=== PATIENT | female | born 1960 | race Caucasian/White ===

== ENCOUNTER 2019-08-03 08:51 | Outpatient (REF) | payer OTHER, SELFPAY ==
[2019-08-03 11:46] LABS: ALT 23 U/L (14-59); AST 18 U/L (15-37); Alkaline Phosphatase 90 U/L (46-116); Anion Gap 7.9 mmol/L (3-11); BUN 11 mg/dL (7-18); Bilirubin, Total 0.3 mg/dL (0.2-1.0); CO2 29.1 mmol/L (21.0-32.0); CREATININE 0.98 mg/dL (0.55-1.02); Calcium 9.2 mg/dL (8.5-10.1); Calculated LDL 84 mg/dL; Chloride 108 mmol/L (98-107); Cholesterol 137 mg/dL (50-200); Estimated GFR 58.09 (mL/min/1.73m2); Glucose 100 mg/dL (70-100); HDL Cholesterol 44 mg/dL (40-60); Potassium 4.6 mmol/L (3.5-5.1); Sodium 145 mmol/L (136-145); Triglyceride 46 mg/dL (30-150)
== END 2019-08-03 09:11 ==
LOC: NCHCN 08:51
PROVIDERS: PCP Nurse Practitioner Family; Visit Provider Family Medicine
DX: Z00.00 Encounter for general adult medical examination without abnormal findings (principal); E03.9 Hypothyroidism, unspecified; R73.03 Prediabetes
CPT/HCPCS: 80053; 80061

== ENCOUNTER 2019-08-10 11:19 | Outpatient (REF) | payer OTHER, SELFPAY ==
--- NOTE | 2019-08-10 10:30 | PAPFT_PTH ---
PATIENT: Ayde Trent LOC: [facility] U#:[id number] AGE/SX: 59/F ROOM: RE08/10/[address]: Lyn Canales : 1960 BED: DIS: 08/10/2019 SPEC #: [id number] RECD: 08/11/19 12:50 STATUS: BAUDILIO REQ #: [id number] ADRI: 08/10/19 10:[address]: Lyn Canales DEPT: [facility] Cytology RECD BY: Kenya Maradiaga ENTERED: 08/11/19 12:50 SP TYPE: PAPFT OTHR DR: Magdalena Ochoa Tissues: 1 - CX/ENDOCX FOR PAP SMEARS Procedures: PAP THIN PREP/[facility] Screening Comments: [id number] (UNSATISFACTORY FOR EVALUATION)
== END 2019-08-10 11:39 ==
LOC: NCHCN 11:19
PROVIDERS: PCP Nurse Practitioner Family; Visit Provider Family Medicine
DX: Z00.00 Encounter for general adult medical examination without abnormal findings (principal); Z12.4 Encounter for screening for malignant neoplasm of cervix; Z11.51 Encounter for screening for human papillomavirus (HPV); Z01.419 Encounter for gynecological examination (general) (routine) without abnormal findings
CPT/HCPCS: 88142; 87624

== ENCOUNTER 2020-03-27 08:47 | Outpatient (CLI) | payer OTHER, SELFPAY ==
--- NOTE | 2020-03-27 | DI.MAMMO_ITS ---
EXAM: MAMMO SCREENING CLINICAL HISTORY: SCREENING, Z12.31, PREVENTIVE CARE, Z00.00 TECHNIQUE: Mammograms were interpreted according to the usual protocol including computer analysis w [email or web address] CAD system, tomosynthesis and C-view imaging. COMPARISON: 2009 through 2015 FINDINGS: The breasts are composed of heterogeneously dense fibroglandular densities, Breast Density category C . No suspicious masses or suspicious microcalcifications are seen. No skin thickening or abnormal axillary lymph nodes are seen. There has been no significant change from prior exams. IMPRESSION: BI-RADS Category 1: Negative mammogram. Yearly screening mammography is recommended. Breast density category C, heterogeneously dense tissue which decreases the sensitivity of the mammog edie. The mammogram demonstrates the patient's breast tissue is dense. Dense breast tissue is very common a nd is not abnormal but dense breast tissue can make it harder to find cancer on a mammogram. Also, de nse breast tissue may increase breast cancer risk. This information about the result of the mammogram report was provided to the patient to raise their awareness. Use this report when you speak with the patient about their risks for breast cancer, which includes their family history. At that time, you may recommend additional screening tests (Ultrasound or MRI) as they might be useful based on their r isk. A negative radiographic report should not delay biopsy if a dominant or clinically suspicious mass is present. Up to ten percent of cancers are not identified on mammography. A negative report may reinforce clinical impression. Adenosis and dense breasts may obscure an underlying neoplasm. False positive reports average 6 to 10%.
--- NOTE | 2020-03-27 | DI.DEXA_ITS ---
EXAM: XR DEXA BONE DENSITY W/WO WILDER CLINICAL HISTORY: SCREENING FOR OSTEOPOROSIS IN POSTMENOPAUSAL WOMAN,Z78.0,PREVENTIVE CARE, TECHNIQUE: HoloViropro C densitometer was utilized. COMPARISON: DEXA BONE DENSITY WITH WILDER from 05/12/2016 FINDINGS: The lateral view of the thoracic and lumbar spine shows no evidence of compression fractures. Bone mineral density measurements of the lumbar spine correspond to a total T-score of -3.1, in the o steoporotic range. This is a 3.0 percent decrease when compared with 2016 which is not statistically significant. The bone mineral density measurements of the left hip correspond to a total T-score of -0.8 and a fem oral neck T-score of -1.4, in the osteopenic range. The total bone mineral density is unchanged when compared with 2016. Forearm was not analyzed due to history of fracture. IMPRESSION: Stable osteoporosis of the lumbar spine. Stable osteopenia of the left hip.
== END 2020-03-27 09:07 ==
PROVIDERS: PCP Nurse Practitioner Family; Visit Provider Family Medicine
DX: M81.0 Age-related osteoporosis without current pathological fracture (principal); M85.88 Other specified disorders of bone density and structure, other site; Z78.0 Asymptomatic menopausal state; Z00.00 Encounter for general adult medical examination without abnormal findings; Z12.31 Encounter for screening mammogram for malignant neoplasm of breast
CPT/HCPCS: 77063; 77067; 77080

== ENCOUNTER 2021-03-03 18:46 | Outpatient (REF) | payer OTHER, SELFPAY ==
[2021-03-03 21:38] LABS: HCT 38.8 % (36.0-46.0); HGB 12.8 g/dL (11.2-15.7); MCH 31.8 pg (27.0-33.0); MCV 96.5 fL (80-95); MPV 9.6 fL (8.0-11.0); Platelet Count 441 10^3/uL (130-400); RBC 4.02 10^6/uL (3.93-5.22); RDW 12.8 % (11.7-14.6); RDW-SD 45.6 fL; WBC 11.02 10^3/uL (4.4-10.8)
[2021-03-03 21:58] LABS: ALT 30 U/L (14-59); AST 20 U/L (15-37); Albumin 4.1 g/dL (3.4-5.0); Alkaline Phosphatase 109 U/L (46-116); Anion Gap 10.8 mmol/L (3-11); BUN 20 mg/dL (7-18); Bilirubin, Total 0.1 mg/dL (0.2-1.0); CO2 26.2 mmol/L (21.0-32.0); CREATININE 1.3 mg/dL (0.55-1.02); Calcium 9.1 mg/dL (8.5-10.1); Calculated LDL 82 mg/dL (<100); Chloride 105 mmol/L (98-107); Cholesterol 143 mg/dL (<200); Estimated GFR 41.64 (mL/min/1.73m2); Glucose 115 mg/dL (74-106); HDL Cholesterol 43 mg/dL (40-60); Potassium 4.2 mmol/L (3.5-5.1); Sodium 142 mmol/L (136-145); TSH (W/Ref FT4) 4.59 uIU/mL (0.36-3.74); Total Protein 7.2 g/dL (6.4-8.2); Triglyceride 92 mg/dL (<150)
== END 2021-03-03 18:47 | disposition home or self-care (01) ==
LOC: NCHCN 18:46
PROVIDERS: PCP Nurse Practitioner Family; Visit Provider Family Medicine
DX: E03.9 Hypothyroidism, unspecified (principal)
CPT/HCPCS: 80053; 80061; 85027; 84439; 84443

== ENCOUNTER 2021-04-07 11:55 | Outpatient (REF) | payer OTHER, SELFPAY ==
--- NOTE | 2021-04-07 11:20 | PAPFT_PTH ---
PATIENT: Ayde Trent LOC: [facility]#:[id number] AGE/SX: 61/F ROOM: RE04/07/[address]: Lyn Canales : 1960 BED: DIS: 04/07/2021 SPEC #: [id number] RECD: 04/08/21 12:37 STATUS: BAUDILIO REQ #: [id number] ADRI: 04/07/21 11:[address]: Lyn Canales DEPT: [facility] Cytology RECD BY: Rosalia Davey ENTERED: 04/08/21 12:38 SP TYPE: PAPFT OTHR DR: Magdalena Ochoa Tissues: 1 - CX/ENDOCX FOR PAP SMEARS Procedures: PAP THIN PREP/[facility] Screening HPV DNA PROBE Comments: [id number]
== END 2021-04-07 11:56 | disposition home or self-care (01) ==
LOC: NCHCN 11:55
PROVIDERS: PCP Nurse Practitioner Family; Visit Provider Family Medicine
DX: Z00.00 Encounter for general adult medical examination without abnormal findings (principal); Z12.4 Encounter for screening for malignant neoplasm of cervix; Z01.419 Encounter for gynecological examination (general) (routine) without abnormal findings; Z11.51 Encounter for screening for human papillomavirus (HPV)
CPT/HCPCS: 87491; 87591; 88142; 87624

== ENCOUNTER 2021-07-09 13:28 | Outpatient (REF) | payer OTHER, SELFPAY | END 2021-07-09 13:29 | disposition home or self-care (01) | LOC: NCHCN 13:28 | PROVIDERS: PCP Nurse Practitioner Family; Visit Provider Family Medicine | DX: E03.9 Hypothyroidism, unspecified (principal) | CPT/HCPCS: 84443 ==

== ENCOUNTER 2022-10-20 16:24 | Outpatient (REF) | payer OTHER, SELFPAY ==
[2022-10-20 21:44] LABS: ALT 39 U/L (14-59); AST 27 U/L (15-37); Albumin 4.4 g/dL (3.4-5.0); Alkaline Phosphatase 97 U/L (46-116); Anion Gap 10.3 mmol/L (3-11); BUN 19 mg/dL (7-18); Bilirubin, Total 0.4 mg/dL (0.2-1.0); CO2 25.7 mmol/L (21.0-32.0); CREATININE 1.2 mg/dL (0.55-1.02); Calcium 9.7 mg/dL (8.5-10.1); Chloride 98 mmol/L (98-107); Estimated GFR 51.18 (mL/min/1.73m2); Glucose 93 mg/dL (74-106); Sodium 134 mmol/L (136-145); Total Protein 7.5 g/dL (6.4-8.2)
[2022-10-20 21:54] LABS: Lipase 224 U/L (73-393)
== END 2022-10-20 16:25 | disposition home or self-care (01) ==
LOC: NCHCN 16:24
PROVIDERS: PCP Nurse Practitioner Family; Visit Provider Family Medicine
DX: R10.11 Right upper quadrant pain (principal)
CPT/HCPCS: 80053; 83690

== ENCOUNTER 2023-07-23 21:10 | Outpatient (REF) | payer OTHER, SELFPAY ==
[2023-07-23 22:22] LABS: FREE T4 1.18 ng/dL (0.76-1.46); TSH 1.25 uIU/mL (0.36-3.74)
== END 2023-07-23 21:11 | disposition home or self-care (01) ==
LOC: NCHCN 21:10
PROVIDERS: PCP Nurse Practitioner Family; Visit Provider Family Medicine
DX: E03.9 Hypothyroidism, unspecified (principal)
CPT/HCPCS: 84439; 84443

== ENCOUNTER 2025-02-05 13:16 | Outpatient (REF) | payer OTHER, SELFPAY ==
[2025-02-05 15:24] LABS: ALT 21 U/L (14-59); AST 19 U/L (15-37); Alkaline Phosphatase 110 U/L (46-116); Anion Gap 8.2 mmol/L (3-11); BUN 16 mg/dL (7-18); Bilirubin, Total 0.4 mg/dL (0.2-1.0); CO2 29.8 mmol/L (21.0-32.0); CREATININE 1.1 mg/dL (0.55-1.02); Calcium 9.5 mg/dL (8.5-10.1); Calculated LDL 105 mg/dL (<100); Chloride 105 mmol/L (98-107); Cholesterol 185 mg/dL (<200); Estimated GFR 56.11 (mL/min/1.73m2); Glucose 107 mg/dL (74-106); HDL Cholesterol 59 mg/dL (>or=50); Potassium 4.8 mmol/L (3.5-5.1); Sodium 143 mmol/L (136-145); TSH 3.46 uIU/mL (0.36-3.74); Total Protein 7.3 g/dL (6.4-8.2); Triglyceride 107 mg/dL (<150)
[2025-02-06 10:22] LABS: Hepatitis C Ab w Rflx HCV PCR Negative (Negative)
== END 2025-02-05 13:17 | disposition home or self-care (01) ==
LOC: NCHCN 13:16
PROVIDERS: PCP Family Medicine; Visit Provider Family Medicine
DX: Z00.00 Encounter for general adult medical examination without abnormal findings (principal)
CPT/HCPCS: 80053; 80061; 86803; 84439; 84443